=== PATIENT | female | born 1945 | race Caucasian/White ===

== ENCOUNTER 2021-09-15 09:00 | Outpatient (CLI) | payer OTHER | END 2021-09-15 09:15 | disposition home or self-care (01) | LOC: PPH VACUNA 09:00 | PROVIDERS: ATTEND Emergency Medicine Pediatric Emergency Medicine | DX: Z23 Encounter for immunization (principal) ==

== ENCOUNTER 2022-06-08 09:19 | Emergency (ER) | payer OTHER ==
[~2022-06-08] VITALS: Ht 162.6 cm; Wt 47.6 kg
[~2022-06-08 09:19] MED LIST: PERCOCET 5-3251 EACH PO
== END 2022-06-08 18:49 | disposition home or self-care (01) ==
LOC: ER 09:19
DX: R10.32 Left lower quadrant pain (principal); E07.9 Disorder of thyroid, unspecified; E11.649 Type 2 diabetes mellitus with hypoglycemia without coma; I10 Essential (primary) hypertension; K57.30 Diverticulosis of large intestine without perforation or abscess without bleeding

== ENCOUNTER 2022-06-11 05:39 | Emergency (ER) | payer OTHER ==
[~2022-06-11] VITALS: Ht 165.1 cm; Wt 47.6 kg
[2022-06-11] MEDS ORDERED: LANTUS SOL100 UNIT/1 (05:52)
== END 2022-06-11 15:33 | disposition home or self-care (01) ==
LOC: ER 05:39
DX: R10.32 Left lower quadrant pain (principal); R11.0 Nausea; K57.90 Diverticulosis of intestine, part unspecified, without perforation or abscess without bleeding; N20.0 Calculus of kidney; Z90.710 Acquired absence of both cervix and uterus; Z90.49 Acquired absence of other specified parts of digestive tract; Z88.6 Allergy status to analgesic agent; E11.9 Type 2 diabetes mellitus without complications; Z79.4 Long term (current) use of insulin